=== PATIENT | female | born 1995 | race Caucasian/White ===

== ENCOUNTER 2021-05-27 21:00 | Emergency (ER) | payer OTHER ==
[2021-05-27 21:46] VITALS: BP 140/93; PULSE 108; TEMP 98.6; BMI 29.2
[2021-05-27] MEDS ORDERED: predniSONE 10 MG TABLET (UD) PO ONE (22:19)
[2021-05-27] MEDS ORDERED: predniSONE 10 MG TABLET (UD) ONE (22:24)
== END 2021-05-27 22:27 | disposition home or self-care (01) ==
LOC: FER 21:00
DX: R09.81 Nasal congestion (principal)
CPT/HCPCS: 99283-25